=== PATIENT | male | born 1990 | race Caucasian/White ===

== ENCOUNTER 2016-12-31 16:36 | Emergency (ER) | payer SELFPAY ==
[~2016-12-31] VITALS: Ht 175.2 cm; Wt 99.8 kg
[~2016-12-31 16:36] MED LIST: AMOXICILLIN500 MG PO; KEFLEX500 MG PO; LOTRISONE 0.05%45 GM T; MOTRIN800 MG PO; NAPROSYN500 MG PO; NKHM; SKELAXIN400 MG PO; ZANTAC 300300 MG PO
[2016-12-31 18:12] LABS: BILIRUBIN NEGATIVE (NEGATIVE); BLOOD NEGATIVE (NEGATIVE); CLARITY SL CLOUDY (CLEAR); COLOR YELLOW (YELLOW); GLUCOSE NEGATIVE (NEGATIVE); KETONE 1+ (NEGATIVE); LEUKO ESTERASE NEGATIVE (NEGATIVE); NITRITE NEGATIVE (NEGATIVE); PH 5.5 (5.0-9.0); SPECIFIC GRAVITY >= 1.030 (1.005-1.030); UROBILINOGEN 0.2 E.U./dl (0.2-1.0)
[2016-12-31 18:22] LABS: BACTERIA 1+; MUCOUS 3+
[2016-12-31 18:23] LABS: EPITHELIAL CELLS 0-2
== END 2016-12-31 19:19 | disposition home or self-care (01) ==
LOC: ED 16:36
PROVIDERS: Nurse Practitioner Family
DX: Z11.3 Encounter for screening for infections with a predominantly sexual mode of transmission (principal)

== ENCOUNTER 2017-02-18 18:25 | Emergency (ER) | payer SELFPAY ==
[~2017-02-18] VITALS: Wt 101.2 kg
[2017-02-18 20:29] LABS: BASO # 0.1 10*3/uL (0.0-0.1); BASO % 0.6 % (0.0-1.0); EOS # 0.1 10*3/uL (0.0-0.4); EOS % 0.3 % (1.0-4.0); HEMATOCRIT 47.3 % (42.0-52.0); HEMOGLOBIN 15.8 g/dl (14.0-18.0); LYMPH # 3.6 10*3/uL (1.3-4.4); LYMPH % 25.2 % (27.0-41.0); MEAN CELL VOLUME 85.8 fl (80.0-94.0); MEAN CORPUSCULAR HGB 28.7 pg (27.0-31.0); MEAN CORPUSCULAR HGB CONC 33.4 g/dl (33.0-37.0); MEAN PLATELET VOLUME 10.6 fl (9.6-12.3); MONO # 0.9 10*3/uL (0.1-1.0); MONO % 6.3 % (3.0-9.0); NEUT # 9.7 10*3/uL (2.3-7.9); NEUT % 67.2 % (47.0-73.0); PLATELET COUNT AUTOMATED 265 10*3/uL (130-400); RED BLOOD COUNT 5.51 10*6/uL (4.50-5.90); RED CELL DISTRI WIDTH 12.1 % (0-14.5); WHITE BLOOD COUNT 14.4 10*3/uL (4.8-10.8)
[2017-02-18 20:41] LABS: BUN 6 mg/dl (7-24); CHLORIDE 103 mmol/L (98-107); CREATININE 0.76 mg/dL (0.70-1.30); POTASSIUM 4.2 mmol/L (3.5-5.1); SODIUM 140 mmol/L (136-145)
[2017-02-18] MEDS ORDERED: REGLAN5 MG PO (21:58)
[2017-02-18 22:12] LABS: BILIRUBIN NEGATIVE (NEGATIVE); BLOOD NEGATIVE (NEGATIVE); CLARITY CLEAR (CLEAR); COLOR YELLOW (YELLOW); GLUCOSE NEGATIVE (NEGATIVE); KETONE 2+ (NEGATIVE); LEUKO ESTERASE NEGATIVE (NEGATIVE); NITRITE NEGATIVE (NEGATIVE)
[2017-02-18 22:26] LABS: BACTERIA TRACE; MUCOUS 3+; RBC 0-2 rbc/hpf (0-2); WBC 0-2 wbc/hpf (0-5)
== END 2017-02-18 22:09 | disposition home or self-care (01) ==
LOC: ED 18:25
PROVIDERS: Emergency Medicine Emergency Medical Services; Hospitalist
DX: R10.32 Left lower quadrant pain (principal)

== ENCOUNTER 2018-09-10 10:34 | Emergency (ER) | payer OTHER ==
[~2018-09-10] VITALS: Wt 108.9 kg
[~2018-09-10 10:34] MED LIST changes: +REGLAN5 MG PO
[2018-09-10] MEDS ORDERED: CLARITIN-D 121 EACH PO (11:06)
[2018-09-10] MEDS ORDERED: AMOXICILLIN500 M2 PO (11:06)
== END 2018-09-10 10:58 | disposition home or self-care (01) ==
LOC: ED 10:34
DX: H66.91 Otitis media, unspecified, right ear (principal); Z79.899 Other long term (current) drug therapy

== ENCOUNTER 2021-07-10 14:46 | Emergency (ER) | payer OTHER ==
[~2021-07-10] VITALS: Wt 115.2 kg
[~2021-07-10 14:46] MED LIST changes: +AMOXICILLIN500 M2 PO; +CLARITIN-D 121 EACH PO
[2021-07-10 16:16] LABS: BASO # 0.1 10*3/uL (0.0-0.1); BASO % 0.7 % (0.0-1.0); EOS # 0.1 10*3/uL (0.0-0.4); EOS % 0.6 % (1.0-4.0); LYMPH # 2.1 10*3/uL (1.3-4.4); MEAN CORPUSCULAR HGB 27.8 pg (27.0-31.0); MEAN CORPUSCULAR HGB CONC 33.1 g/dl (33.0-37.0); MEAN PLATELET VOLUME 10.6 fl (9.6-12.3); MONO # 0.8 10*3/uL (0.1-1.0); NEUT # 12.9 10*3/uL (2.3-7.9); NEUT % 80.2 % (47.0-73.0); PLATELET COUNT AUTOMATED 271 10*3/uL (130-400); RED BLOOD COUNT 5.36 10*6/uL (4.50-5.90); RED CELL DISTRI WIDTH 12.9 % (0-14.5); WHITE BLOOD COUNT 16.1 10*3/uL (4.8-10.8)
[2021-07-10 16:30] LABS: BUN 12 mg/dl (7-24); CHLORIDE 108 mmol/L (98-107); CREATININE 0.84 mg/dL (0.70-1.30); POTASSIUM 4.1 mmol/L (3.5-5.1); SODIUM 141 mmol/L (136-145)
[2021-07-10] MEDS ORDERED: REGLAN10 M1 PO (17:22)
[2021-07-10] MEDS ORDERED: TYLENOL325 M1 PO (17:22)
[2021-07-10] MEDS ORDERED: NAPROXEN250 MG PO (17:22)
[2021-07-10 18:02] LABS: BILIRUBIN Negative (Negative); BLOOD 1+ (Negative); CLARITY Clear (Clear); COLOR Yellow (Yellow); GLUCOSE Negative (Negative); KETONE Negative (Negative); LEUKO ESTERASE Negative (Negative); NITRITE Negative (Negative); PH 7.5 (4.5-8.0)
[2021-07-10 18:09] LABS: BACTERIA 2+; EPITHELIAL CELLS 0-2; MUCOUS 2+
== END 2021-07-10 18:47 | disposition home or self-care (01) ==
LOC: ED 14:46
PROVIDERS: Emergency Medicine
DX: N23 Unspecified renal colic (principal); R11.2 Nausea with vomiting, unspecified

== ENCOUNTER → 2023-10-14 | Outpatient (CLI) | payer OTHER ==
[~2023-10-14] MED LIST changes: +NAPROXEN250 MG PO; +REGLAN10 M1 PO; +TYLENOL325 M1 PO
[2023-10-14 17:44] LABS: BILIRUBIN Negative (Negative); BLOOD Negative (Negative); CLARITY Clear (Clear); COLOR Yellow (Yellow); GLUCOSE Negative (Negative); KETONE Negative (Negative); LEUKO ESTERASE Negative (Negative); NITRITE Negative (Negative); SPECIFIC GRAVITY 1.025 (1.001-1.030); UROBILINOGEN 0.2 E.U./dl (0.0-1.0)
[2023-10-14 18:00] LABS: EPITHELIAL CELLS 0-2; WBC 0-2 wbc/hpf (0-5)
== END | disposition home or self-care (01) ==
LOC: US 12:03
PROVIDERS: ATTEND Nurse Practitioner Family
DX: R30.0 Dysuria (principal); N50.811 Right testicular pain

== ENCOUNTER → 2024-08-11 | Outpatient (CLI) | payer OTHER | END | disposition home or self-care (01) | LOC: US 08-05 08:00 | PROVIDERS: ATTEND Nurse Practitioner Family | DX: D17.9 Benign lipomatous neoplasm, unspecified (principal) ==